=== PATIENT | female | born 1960 | race Caucasian/White ===

== ENCOUNTER → 2016-06-01 | Outpatient (CLI) | payer BC ==
[~2016-06-01] MED LIST: ASPIRIN 32325 MG/TAB PO; ATIVAN 1MG T1 MG/TAB PO; CARDIZEM CD 24240 MG PO; CARDIZEM CD360 MG PO; CATAPRES 0.1MG0.1 MG PO; CEPHALEXIN500 M1 PO; CITALOPRAM HYDR20 MG PO; CYMBALTA 60MG60 MG PO; DULCOLAX STOOL100 MG PO; INDERAL 10MG10 MG PO; INDERAL LA120 MG PO; INDERAL80 MG PO; LEXAPRO 10MG10 MG PO; LEXAPRO 5MG5 MG; MINIPRESS 1M1 MG/CAP PO; MYSOLINE 5050 MG/TAB PO; NATURE'S BLEND100 M2 PO; NICODERM C14 MG/PATC TD; NICODERM C21 MG/PATC TD; NICODERM C7 MG/PATCH TD; NORVASC; NORVASC 5MG5 MG/TAB PO; PREMARIN 0.60.625 M1 PO; PRILOSEC 20MG20 MG PO; PRILOTC PO; REMERON 15M15 MG/TA1 PO; SEROQUEL; SEROQUEL 2525 MG/TAB PO; SEROQUEL50 MG PO; SYNTHROID 0.10.15 MG PO; SYNTHROID0.137 MG PO; TAMBOCOR 1100 MG/TAB PO; THERAGRAN TAB1 UDTAB PO; ULTRAM 50MG TAB50 MG PO; VALIUM 5MG T5 MG/TAB PO; WELLBUTRIN SR100 M1 PO; WELLBUTRIN XL300 M1 PO; XARELTO20 MG PO; ZINC SO4 PO; ZOFRAN 4MG T4 MG/TAB PO
== END ==
LOC: BHSO 10:59
DX: F10.20 Alcohol dependence, uncomplicated (principal)

== ENCOUNTER → 2016-10-03 | Outpatient (CLI) | payer BC | LOC: BHSO 09:04 | DX: F43.10 Post-traumatic stress disorder, unspecified (principal) ==

== ENCOUNTER → 2016-11-26 | Outpatient (CLI) | payer BC | LOC: BHSO 10:59 | DX: F43.10 Post-traumatic stress disorder, unspecified (principal) ==

== ENCOUNTER 2017-01-15 14:05 | Emergency (ER) | payer BC ==
[~2017-01-15] VITALS: Ht 172.7 cm; Wt 95.5 kg
[~2017-01-15 14:05] MED LIST changes: -CARDIZEM CD360 MG PO; -MINIPRESS 1M1 MG/CAP PO; -TAMBOCOR 1100 MG/TAB PO; -XARELTO20 MG PO
[2017-01-15 14:08] VITALS: TEMP 98.2
[2017-01-15] MEDS ORDERED: XARELTO20 MG PO (15:14)
[2017-01-15] MEDS ORDERED: CARDIZEM CD360 MG PO (15:14)
[2017-01-15] MEDS ORDERED: TAMBOCOR 1100 MG/TAB PO (15:16)
[2017-01-15] MEDS ORDERED: MINIPRESS 1M1 MG/CAP PO (15:16)
[2017-01-15 15:23] LABS: BASO # 0.1 (0.0-0.2); BASO % 0.7 % (0.0-2.0); EOS # 0.4 (0.0-0.7); EOS % 3.3 % (0-4.0); GRAN # 6.4 (1.4-6.5); GRAN % 59.7 % (42.2-75.2); HEMOGLOBIN 13.9 g/dl (12.5-16.0); LYMPH # 2.9 (1.2-3.4); LYMPH % 27.2 % (20.0-51.0); MEAN CELL VOLUME 91 fl (80.0-100.0); MEAN CORPUSCULAR HEMOGLOBIN 29 pg (27.0-31.0); MEAN CORPUSCULAR HGB CONC 32 g/dl (33.0-37.0); MEAN PLATELET VOLUME 9.6 fl (7.4-10.4); MONO # 0.9 (0.1-0.6); MONO % 8.4 % (1.7-9.3); PLATELET COUNT 282 K/mm3 (130-400); RED BLOOD COUNT 4.75 M/mm3 (4.10-5.30); REDCELL DISTRIBUTION WIDTH-CV 13.3 % (11.5-14.5); WHITE BLOOD COUNT 10.8 K/mm3 (4.8-10.8)
[2017-01-15 15:33] LABS: ADJUSTED CALCIUM 9.3 mg/dL (8.4-10.2); ALBUMIN 4.1 gm/dL (3.5-5.0); BILIRUBIN,TOTAL 0.5 mg/dL (0.0-1.0); CALCIUM 9.4 mg/dL (8.4-10.2); CREATININE, serum 0.81 mg/dL (0.52-1.25); POTASSIUM 4.3 mmol/L (3.4-5.0); TOTAL PROTEIN 7.5 gm/dL (6.4-8.2)
[2017-01-15 16:20] VITALS: BP 129/77; PULSE 62
== END 2017-01-15 16:21 | disposition home or self-care (01) ==
LOC: COL.ER 14:05
PROVIDERS: Family Medicine
DX: J45.901 Unspecified asthma with (acute) exacerbation (principal); G40.909 Epilepsy, unspecified, not intractable, without status epilepticus; F17.210 Nicotine dependence, cigarettes, uncomplicated; Z89.9 Acquired absence of limb, unspecified
CPT/HCPCS: J7512

== ENCOUNTER → 2017-01-15 | Outpatient (CLI) | payer BC | LOC: COL.PUL 13:00 | DX: R06.02 Shortness of breath (principal); F17.200 Nicotine dependence, unspecified, uncomplicated ==

== ENCOUNTER → 2017-01-21 | Outpatient (CLI) | payer BC ==
[~2017-01-21] MED LIST changes: +CARDIZEM CD360 MG PO; +MINIPRESS 1M1 MG/CAP PO; +TAMBOCOR 1100 MG/TAB PO; +XARELTO20 MG PO
== END ==
LOC: COL.RAD 13:00
DX: R91.8 Other nonspecific abnormal finding of lung field (principal)
CPT/HCPCS: Q9967

== ENCOUNTER → 2017-03-08 | Outpatient (CLI) | payer BC | LOC: BHSO 10:12 | DX: F43.10 Post-traumatic stress disorder, unspecified (principal) ==

== ENCOUNTER → 2017-04-08 | Outpatient (CLI) | payer BC | LOC: BHSO 11:20 | DX: F43.10 Post-traumatic stress disorder, unspecified (principal) ==

== ENCOUNTER 2017-04-11 14:45 | Outpatient (RCR) | payer BC | END 2017-06-09 | LOC: MKS.ESL.PT | DX: R53.1 Weakness (principal); R26.89 Other abnormalities of gait and mobility ==

== ENCOUNTER → 2017-04-17 | Outpatient (CLI) | payer BC | LOC: BHSO 11:02 | DX: F33.1 Major depressive disorder, recurrent, moderate (principal) ==

== ENCOUNTER → 2017-04-22 | Outpatient (CLI) | payer BC | LOC: BHSO 16:00 | DX: F33.1 Major depressive disorder, recurrent, moderate (principal) ==

== ENCOUNTER → 2017-05-02 | Outpatient (CLI) | payer BC | LOC: BHSO 10:02 | DX: F33.1 Major depressive disorder, recurrent, moderate (principal) ==

== ENCOUNTER → 2017-05-22 | Outpatient (CLI) | payer BC | LOC: BHSO 14:00 | DX: F33.1 Major depressive disorder, recurrent, moderate (principal) ==

== ENCOUNTER → 2017-06-03 | Outpatient (CLI) | payer BC | LOC: BHSO 13:22 | DX: F43.10 Post-traumatic stress disorder, unspecified (principal) | CPT/HCPCS: G0463 ==

== ENCOUNTER → 2017-06-05 | Outpatient (CLI) | payer BC | LOC: BHSO 14:04 | DX: F33.1 Major depressive disorder, recurrent, moderate (principal) ==

== ENCOUNTER → 2017-06-20 | Outpatient (CLI) | payer BC | LOC: BHSO 11:08 | DX: F33.1 Major depressive disorder, recurrent, moderate (principal) ==

== ENCOUNTER → 2017-09-02 | Outpatient (CLI) | payer BC | LOC: BHSO 14:05 | DX: F43.10 Post-traumatic stress disorder, unspecified (principal) | CPT/HCPCS: G0463 ==

== ENCOUNTER 2017-09-28 20:18 | Emergency (ER) | payer BC ==
[~2017-09-28] VITALS: Ht 170.2 cm; Wt 96.4 kg
[~2017-09-28 20:18] MED LIST changes: +WELLBUTRIN XL150 MG PO; -WELLBUTRIN XL300 M1 PO
[2017-09-28 20:26] VITALS: TEMP 97.9
[2017-09-28 21:02] LABS: HEMATOCRIT 44.1 % (37.0-47.0); HEMOGLOBIN 14.8 g/dl (12.5-16.0); MEAN CELL VOLUME 85 fl (80.0-100.0); MEAN CORPUSCULAR HEMOGLOBIN 28 pg (27.0-31.0); MEAN CORPUSCULAR HGB CONC 34 g/dl (33.0-37.0); MEAN PLATELET VOLUME 9.2 fl (7.4-10.4); PLATELET COUNT 359 K/mm3 (130-400); RED BLOOD COUNT 5.22 M/mm3 (4.10-5.30); REDCELL DISTRIBUTION WIDTH-CV 14.4 % (11.5-14.5)
[2017-09-28 21:14] LABS: ALANINE AMINOTRANSFERASE 33 U/L (9-52); ALBUMIN 4.1 gm/dL (3.5-5.0); ALCOHOL(ethanol),MEDICAL 250 mg/dL; ALKALINE PHOSPHATASE 163 U/L (50-136); ANION GAP 16 mmol/L (7-16); AST,SGOT 23 U/L (15-37); BILIRUBIN,TOTAL 0.5 mg/dL (0.0-1.0); BLOOD UREA NITROGEN 15 mg/dL (7-17); CALCIUM 9.1 mg/dL (8.4-10.2); CARBON DIOXIDE 21 mmol/L (22-30); CHLORIDE 104 mmol/L (98-107); CREATININE, serum 0.83 mg/dL (0.52-1.25); GLUCOSE 119 mg/dL (74-106); LIPASE 29 U/L (23-300); SODIUM 141 mmol/L (137-145)
[2017-09-28 21:15] LABS: ACETAMINOPHEN < 10 ug/mL (10-30); SALICYLATE < 1.0 mg/dL
[2017-09-28 21:19] LABS: BAND 4 % (0-10); EOSINOPHIL 1 % (0-4); LYMPHOCYTE 56 % (20.0-51.0); NEUTROPHILS 36 % (42.0-75.2); PLATELET ESTIMATE NORMAL (NORMAL)
[2017-09-28] MEDS ORDERED: ESTRACE 1MG1 MG/TAB PO (22:04)
[2017-09-28] MEDS ORDERED: ULTRAM 50MG TAB50 MG PO (22:21)
[2017-09-28] MEDS ORDERED: ATARAX 25MG25 MG/TAB PO (22:21)
[2017-09-28] MEDS ORDERED: NEURONTIN300 MG/CAP PO (22:21)
[2017-09-28] MEDS ORDERED: ASPIRIN E.C. 8181 MG PO (22:21)
[2017-09-28] MEDS ORDERED: KLONOPIN 1MG1 MG PO (22:21)
[2017-09-28 23:31] LABS: COLLECTION METHOD CLEAN CATCH
[2017-09-28 23:38] LABS: PH 5 (5-8); SQUAMOUS EPITHELIAL 0-2 /hpf; URINE APPEARANCE Clear; URINE BACTERIA None Seen /hpf; URINE BILIRUBIN Negative (NEGATIVE); URINE BLOOD 1+ (NEGATIVE); URINE COLOR Yellow; URINE GLUCOSE Negative (NEGATIVE); URINE KETONE Negative (NEGATIVE); URINE LEUKOCYTE ESTERASE Negative (NEGATIVE); URINE NITRATE Negative (NEGATIVE); URINE PROTEIN(semi-quant) Negative (NEGATIVE); URINE RBC 0-2 /hpf; URINE UROBILINOGEN Negative (NEGATIVE)
[2017-09-28 23:45] LABS: TRICYCLIC ANTIDEPRESS URINE NEGATIVE
[2017-09-29 09:12] VITALS: BP 168/96; PULSE 73
== END 2017-09-29 14:30 ==
LOC: COL.ER 20:18
PROVIDERS: Emergency Medicine
DX: F10.129 Alcohol abuse with intoxication, unspecified (principal); R45.851 Suicidal ideations; I10 Essential (primary) hypertension; I48.91 Unspecified atrial fibrillation; F32.9 Major depressive disorder, single episode, unspecified; E03.9 Hypothyroidism, unspecified; Z90.710 Acquired absence of both cervix and uterus; Z79.01 Long term (current) use of anticoagulants; Z79.82 Long term (current) use of aspirin; Y90.8 Blood alcohol level of 240 mg/100 ml or more

== ENCOUNTER → 2017-10-15 | Outpatient (CLI) | payer BC ==
[~2017-10-15] MED LIST changes: +ASPIRIN E.C. 8181 MG PO; +ATARAX 25MG25 MG/TAB PO; +ESTRACE 1MG1 MG/TAB PO; +KLONOPIN 1MG1 MG PO; +NEURONTIN300 MG/CAP PO
== END ==
LOC: BHSO 14:42
DX: F10.20 Alcohol dependence, uncomplicated (principal)
CPT/HCPCS: G0463

== ENCOUNTER → 2017-10-16 | Outpatient (CLI) | payer BC | LOC: BHSO 10:54 | DX: F33.1 Major depressive disorder, recurrent, moderate (principal) ==

== ENCOUNTER → 2017-10-30 | Outpatient (CLI) | payer BC | LOC: BHSO 16:06 | DX: F33.1 Major depressive disorder, recurrent, moderate (principal) ==

== ENCOUNTER → 2017-11-08 | Outpatient (CLI) | payer BC | LOC: BHSO 15:58 | DX: F33.1 Major depressive disorder, recurrent, moderate (principal) ==

== ENCOUNTER → 2017-11-11 | Outpatient (CLI) | payer BC | LOC: BHSO 09:14 | DX: F33.1 Major depressive disorder, recurrent, moderate (principal) ==

== ENCOUNTER → 2017-11-25 | Outpatient (CLI) | payer BC | LOC: BHSO 09:05 | DX: F31.11 Bipolar disorder, current episode manic without psychotic features, mild (principal) ==

== ENCOUNTER → 2017-12-04 | Outpatient (CLI) | payer BC | LOC: BHSO 09:05 | DX: F31.11 Bipolar disorder, current episode manic without psychotic features, mild (principal) ==

== ENCOUNTER → 2017-12-10 | Outpatient (CLI) | payer BC | LOC: BHSO 09:08 | DX: F31.11 Bipolar disorder, current episode manic without psychotic features, mild (principal) ==

== ENCOUNTER → 2017-12-16 | Outpatient (CLI) | payer BC | LOC: BHSO 10:01 | DX: F31.11 Bipolar disorder, current episode manic without psychotic features, mild (principal) ==

== ENCOUNTER → 2017-12-18 | Outpatient (CLI) | payer BC | LOC: BHSO 10:22 | DX: F43.10 Post-traumatic stress disorder, unspecified (principal) | CPT/HCPCS: G0463 ==

== ENCOUNTER → 2017-12-31 | Outpatient (CLI) | payer BC | LOC: BHSO 08:59 | DX: F31.81 Bipolar II disorder (principal) ==

== ENCOUNTER → 2018-01-09 | Outpatient (CLI) | payer BC | LOC: BHSO 14:00 | DX: F31.81 Bipolar II disorder (principal) ==

== ENCOUNTER → 2018-01-23 | Outpatient (CLI) | payer BC | LOC: BHSO 14:01 | DX: F31.11 Bipolar disorder, current episode manic without psychotic features, mild (principal) ==

== ENCOUNTER → 2018-02-04 | Outpatient (CLI) | payer BC | LOC: BHSO 13:03 | DX: F31.11 Bipolar disorder, current episode manic without psychotic features, mild (principal) ==

== ENCOUNTER → 2018-02-13 | Outpatient (CLI) | payer BC | LOC: BHSO 15:26 | DX: F43.10 Post-traumatic stress disorder, unspecified (principal) | CPT/HCPCS: G0463 ==

== ENCOUNTER → 2018-02-14 | Outpatient (CLI) | payer BC | LOC: BHSO 13:12 | DX: F31.11 Bipolar disorder, current episode manic without psychotic features, mild (principal) ==

== ENCOUNTER → 2018-02-20 | Outpatient (CLI) | payer BC | LOC: BHSO 14:04 | DX: F31.81 Bipolar II disorder (principal) ==

== ENCOUNTER → 2018-03-06 | Outpatient (CLI) | payer BC | LOC: BHSO 11:00 | DX: F31.11 Bipolar disorder, current episode manic without psychotic features, mild (principal) ==

== ENCOUNTER → 2018-03-19 | Outpatient (CLI) | payer BC | LOC: BHSO 13:23 | DX: F41.1 Generalized anxiety disorder (principal) | CPT/HCPCS: G0463 ==

== ENCOUNTER → 2018-05-15 | Outpatient (CLI) | payer BC | LOC: BHSO 15:22 | DX: F43.10 Post-traumatic stress disorder, unspecified (principal) | CPT/HCPCS: G0463 ==

== ENCOUNTER → 2018-05-19 | Outpatient (CLI) | payer BC | LOC: BHSO 15:05 | DX: F31.81 Bipolar II disorder (principal) ==

== ENCOUNTER → 2018-06-10 | Outpatient (CLI) | payer BC | LOC: BHSO 13:04 | DX: F31.81 Bipolar II disorder (principal) ==

== ENCOUNTER → 2018-06-18 | Outpatient (CLI) | payer BC | LOC: BHSO 14:03 | DX: F31.81 Bipolar II disorder (principal) ==

== ENCOUNTER → 2018-08-12 | Outpatient (CLI) | payer BC | LOC: BHSO 10:46 | DX: F43.10 Post-traumatic stress disorder, unspecified (principal) | CPT/HCPCS: G0463 ==

== ENCOUNTER → 2018-08-18 | Outpatient (CLI) | payer BC | LOC: BHSO 10:02 | DX: F31.81 Bipolar II disorder (principal) ==

== ENCOUNTER → 2018-08-25 | Outpatient (CLI) | payer BC | LOC: BHSO 11:02 | DX: F31.11 Bipolar disorder, current episode manic without psychotic features, mild (principal) ==

== ENCOUNTER 2018-09-02 07:51 | Day surgery (SDC) | payer BC ==
[2018-09-02] VITALS (7 sets, daily range): BP systolic 110–156; BP diastolic 60–91; PULSE 69–96; TEMP 97.7
[~2018-09-02] VITALS: Ht 170.2 cm; Wt 93.2 kg
[2018-09-02] MEDS ORDERED: ANORO IH (08:35)
[2018-09-02] MEDS ORDERED: ABILIFY 10MG TA10 MG PO (08:36)
[2018-09-02] MEDS ORDERED: DALIRESP500 MCG PO (08:38)
[2018-09-02] MEDS ORDERED: DESYREL 50MG50 MG PO (08:45)
[2018-09-02] MEDS ORDERED: NATURE'S BLEND100 M2 PO (08:46)
[2018-09-02] MEDS ORDERED: MULTI-VITAMIN W1 TA1 PO (08:46)
[2018-09-02] MEDS ORDERED: ATIVAN 0.50.5 MG/TAB PO (08:47)
--- NOTE | 2018-09-02 10:32 | NUR ---
ALL MEDICATIONS GIVEN VORB WITH MD. SEE MERGE FOR ALL MEDICATION ADMIN TIMES. SEE MERGE FOR ALL RASS ASSESSMENTS DURING AND POST PROCEDURE.
[2018-09-02] MEDS ORDERED: CEPHALEXIN500 M1 PO (10:53)
--- NOTE | 2018-09-02 11:00 | NUR ---
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 Drowsy but oriented. Denies pain and needs at this time. Dressing to mid chest CD&I. VSS
--- NOTE | 2018-09-02 11:40 | NUR ---
INT discontinued intact. Discharge instructions given. Transferred to private car by geno
--- NOTE | 2018-09-03 12:56 | NUR ---
Ranim to discharged note: Joseph Dickerson RN, pt discharged at 1240 on 09/02/18.
== END 2018-09-02 11:40 | disposition home or self-care (01) ==
LOC: COL.CAR 07:51
DX: I48.0 Paroxysmal atrial fibrillation (principal); I10 Essential (primary) hypertension; E11.9 Type 2 diabetes mellitus without complications; K21.9 Gastro-esophageal reflux disease without esophagitis; F17.210 Nicotine dependence, cigarettes, uncomplicated; J44.9 Chronic obstructive pulmonary disease, unspecified; G47.30 Sleep apnea, unspecified; Q20.8 Other congenital malformations of cardiac chambers and connections; Z98.890 Other specified postprocedural states; Z79.899 Other long term (current) drug therapy; Z79.82 Long term (current) use of aspirin; Z90.710 Acquired absence of both cervix and uterus; F41.9 Anxiety disorder, unspecified; F32.9 Major depressive disorder, single episode, unspecified; F10.11 Alcohol abuse, in remission; E03.9 Hypothyroidism, unspecified; K58.9 Irritable bowel syndrome, unspecified
CPT/HCPCS: J0690; J2250; J3010; J7040

== ENCOUNTER → 2018-09-08 | Outpatient (CLI) | payer BC ==
[~2018-09-08] MED LIST changes: +ABILIFY 10MG TA10 MG PO; +ANORO IH; +ATIVAN 0.50.5 MG/TAB PO; +DALIRESP500 MCG PO; +DESYREL 50MG50 MG PO; +MULTI-VITAMIN W1 TA1 PO
== END ==
LOC: BHSO 11:06
DX: F31.81 Bipolar II disorder (principal)

== ENCOUNTER → 2018-09-17 | Outpatient (CLI) | payer BC | LOC: BHSO 11:03 | DX: F31.11 Bipolar disorder, current episode manic without psychotic features, mild (principal) ==

== ENCOUNTER → 2018-09-25 | Outpatient (CLI) | payer BC | LOC: BHSO 09:04 | DX: F31.81 Bipolar II disorder (principal) ==

== ENCOUNTER → 2018-10-07 | Outpatient (CLI) | payer BC | LOC: BHSO 10:02 | DX: F31.81 Bipolar II disorder (principal) ==

== ENCOUNTER → 2018-10-23 | Outpatient (CLI) | payer BC | LOC: BHSO 15:39 | DX: F43.10 Post-traumatic stress disorder, unspecified (principal) | CPT/HCPCS: G0463 ==

== ENCOUNTER → 2018-10-28 | Outpatient (CLI) | payer BC | LOC: BHSO 13:00 | DX: F31.81 Bipolar II disorder (principal) ==

== ENCOUNTER → 2018-11-04 | Outpatient (CLI) | payer BC | LOC: BHSO 13:00 | DX: F31.81 Bipolar II disorder (principal) ==

== ENCOUNTER → 2018-11-25 | Outpatient (CLI) | payer BC | LOC: BHSO 13:01 | DX: F31.81 Bipolar II disorder (principal) ==

== ENCOUNTER → 2019-01-16 | Outpatient (CLI) | payer BC | LOC: BHSO 10:20 | DX: F43.10 Post-traumatic stress disorder, unspecified (principal) | CPT/HCPCS: G0463 ==

== ENCOUNTER → 2019-07-14 | Outpatient (CLI) | payer MEDICARE, OTHER | LOC: BHSO 14:01 | DX: F43.10 Post-traumatic stress disorder, unspecified (principal) | CPT/HCPCS: G0463 ==

== ENCOUNTER 2019-12-04 08:30 | Outpatient (RCR) | payer MEDICARE, OTHER | END 2019-12-24 | disposition home or self-care (01) | LOC: MKS.ESL.PT | DX: M54.5 Low back pain (principal); G89.29 Other chronic pain ==

== ENCOUNTER → 2020-01-14 | Outpatient (CLI) | payer MEDICARE, OTHER | LOC: BHSO 14:01 | DX: F43.10 Post-traumatic stress disorder, unspecified (principal) | CPT/HCPCS: G0463 ==

== ENCOUNTER 2020-06-17 08:46 | Inpatient (IN) | payer MEDICARE ==
[~2020-06-17] VITALS: Ht 170.2 cm; Wt 100.9 kg
[2020-06-17] VITALS (9 sets, daily range): BP systolic 114–167; BP diastolic 60–94; PULSE 61–72; TEMP 97.4–97.9
[2020-06-17 09:25] LABS: BASO # 0.1 (0.0-0.2); BASO % 0.7 % (0.0-2.0); EOS # 0.1 (0.0-0.7); EOS % 0.8 % (0-4.0); GRAN # 10.1 (1.4-6.5); GRAN % 77.4 % (42.2-75.2); HEMATOCRIT 42.4 % (37.0-47.0); HEMOGLOBIN 13.9 g/dl (12.5-16.0); LYMPH # 2.1 (1.2-3.4); LYMPH % 15.8 % (20.0-51.0); MEAN CELL VOLUME 91 fl (80.0-100.0); MEAN CORPUSCULAR HEMOGLOBIN 30 pg (27.0-31.0); MEAN CORPUSCULAR HGB CONC 33 g/dl (33.0-37.0); MEAN PLATELET VOLUME 9.8 fl (7.4-10.4); MONO # 0.6 (0.1-0.6); MONO % 4.8 % (1.7-9.3); PLATELET COUNT 278 K/mm3 (130-400); RED BLOOD COUNT 4.66 M/mm3 (4.10-5.30); REDCELL DISTRIBUTION WIDTH-CV 13.4 % (11.5-14.5)
[2020-06-17 09:32] LABS: PROTHROMBIN TIME 10.6 SECONDS (9.7-12.8)
[2020-06-17 09:35] LABS: PARTIAL THROMBOPLASTIN TIME 32.7 SECONDS (26.0-37.0)
[2020-06-17 09:40] LABS: ALBUMIN 4.4 gm/dL (3.5-5.0); BILIRUBIN,TOTAL 0.4 mg/dL (0.0-1.0); CALCIUM 9.2 mg/dL (8.4-10.2); CREATININE, serum 0.74 (0.52-1.25); POTASSIUM 4.4 mmol/L (3.4-5.0); TOTAL PROTEIN 7.7 gm/dL (6.4-8.2)
[2020-06-17 09:52] LABS: TROPONIN-I 0.11 ng/mL (0.000-0.035)
[2020-06-17] MEDS ORDERED: NEURONTIN300 MG/CAP (10:39)
[2020-06-17] MEDS ORDERED: MYSOLINE 5050 MG/TAB PO (10:42)
[2020-06-17] MEDS ORDERED: WELLBUTRIN XL300 M1 PO (10:42)
[2020-06-17] MEDS ORDERED: DALIRESP500 MCG PO (10:43)
[2020-06-17] MEDS ORDERED: FOLIC ACID 11 MG/TA1 PO (10:44)
[2020-06-17] MEDS ORDERED: TAZTIA180 (10:46)
--- NOTE | 2020-06-17 12:22 | NUR ---
PATIENT ADMITED INTO ROOM 353 FROM ER WITH NSTEMI. PATIENT CURRENTLY DENIES CHEST PAIN OR SOA. NOTED TROPONIN OF 0.110. HEPARIN GTT INFUSING VIA PUMP. PATIENT HAS RIGHT FORARM AND LEFT AC IV'S. NPO FOR HEART CATH LATER TODAY. VSS WITH TELE INPLACE. HEAD TO TOE ASSESSMENT COMPLETE. ORIENTED TO ROOM. CALL LIGHT IN REACH.
--- NOTE | 2020-06-17 14:30 | NUR ---
PATIENT OFF FLOOR TO PUBLIC RELATIONS COORDINATOR
--- NOTE | 2020-06-17 16:25 | NUR ---
PATIENT BACK IN HER ROOM POST HEART CATH. RIGHT RADIAL CUFF INPLACE WITH 16CC OF AIR. PATIENT IS A&O. VSS. NO C/O PAIN. PATIENT CALLING FAMILY AND THEN WANTS TO SLEEP.
--- NOTE | 2020-06-17 17:33 | NUR ---
NURSING CALLED TELE ABOUT ANOTHER PATIENT WHEN TECHNICAL STAFF ENGINEER REPORTED THE PATIENT IN 353 SUDDENLY HAD AN IRREGULAR RHYTHEM. CHARGE NURSE, THO, AND HOUSE AT BEDSIDE. PATIENT REPORTS SHE WAS SLEEPING AND SUDDENTLY REALIZED SHE WAS SUPPOSED TO GIVE A SPEACH TOMORROW AT 8AM AND SAT UP QUICKLY TO CALL SOMEONE. PATIENT STATES SHE FEELS FINE. VSS. RT CALLED FOR STAT EKG.
--- NOTE | 2020-06-17 20:20 | NUR ---
Resting in bed. Assessment complete. Lungs clear. Heart sounds normal. Bowels active x4. Pulses present throughout. No edema noted. INT left AC without complications. Reports headache. Otained order for tylenol. Right radial site oozing with initial release of air. Will closely monitor and follow orders for release of air. Denies other needs at this time. Call light in reach.
--- NOTE | 2020-06-17 21:56 | NUR ---
Pt has order for CPAP Upon visiting with the patient she states she does wear CPAP at home but is unsure of settings. Discussed putting patient on one of our hospital devices with a mask. The patient refuses as this time being that she is unsure of settings and is particular about her mask. She states she believes she is only here overnight. The patient is currently on 2lpm nc and sats ar in the upper 90%s.
--- NOTE | 2020-06-17 22:00 | NUR ---
Remaining air removed from radial arm band. No further oozing at this time.
--- NOTE | 2020-06-18 01:05 | NUR ---
Radial site CDI. Band removed. Bandaide applied. Will continue monitor.
[2020-06-18 01:30] VITALS: BP 139/68; PULSE 62; TEMP 97.4
--- NOTE | 2020-06-18 04:59 | NUR ---
Pt requested something for pain. Pt was given 2 Tylenol at this time. Pt has her call light within reach.
--- NOTE | 2020-06-18 06:08 | NUR ---
Patient right radial site CDI. Uneventful night. Resting in bed this AM. Call light in reach.
[2020-06-18 06:20] VITALS: BP 143/79; PULSE 76; TEMP 98.2
--- NOTE | 2020-06-18 07:11 | NUR ---
Report given to MARY Nelson
[2020-06-18 08:09] VITALS: BP 153/67; PULSE 73; TEMP 97.3
[2020-06-18 09:01] LABS: BASO # 0.1 (0.0-0.2); BASO % 0.6 % (0.0-2.0); EOS # 0.3 (0.0-0.7); EOS % 2.3 % (0-4.0); GRAN # 8.5 (1.4-6.5); GRAN % 68.7 % (42.2-75.2); HEMATOCRIT 42.9 % (37.0-47.0); HEMOGLOBIN 14.1 g/dl (12.5-16.0); LYMPH # 2.8 (1.2-3.4); LYMPH % 22.3 % (20.0-51.0); MEAN CELL VOLUME 92 fl (80.0-100.0); MEAN CORPUSCULAR HEMOGLOBIN 30 pg (27.0-31.0); MEAN CORPUSCULAR HGB CONC 33 g/dl (33.0-37.0); MEAN PLATELET VOLUME 9.9 fl (7.4-10.4); MONO # 0.7 (0.1-0.6); MONO % 5.6 % (1.7-9.3); PLATELET COUNT 287 K/mm3 (130-400); RED BLOOD COUNT 4.67 M/mm3 (4.10-5.30); REDCELL DISTRIBUTION WIDTH-CV 13.5 % (11.5-14.5)
[2020-06-18 09:12] LABS: CALCIUM 9.6 mg/dL (8.4-10.2); CREATININE, serum 0.74 (0.52-1.25)
--- NOTE | 2020-06-18 10:01 | NUR ---
Pt assessment completed and charted, medications administered per jul. Pt A&O, independent in room w/ cane. Currently on2L NC, per pt, she wears O2 at night, removed at this time. Pt denies any SOB, LS cta, HRRR.Rt radial site from heart cath on 06/17, covered w/ bandaid, CDI, soft to touch, no hematoma, pulses strong bilaterally. Pt denies any pain, N/V. Had some diarrhea this morning, states there was no blood that she noticed. LAC INT IV flushes w/o issue. No edema present. Pt meds were not continued from 06/17, discussed w/ hospitalist, will continue meds. Awaiting cards to round, pt to discharge today possibly.
[2020-06-18] MEDS ORDERED: BRILINTA90 MG PO (10:02)
[2020-06-18] MEDS ORDERED: LIPITOR 80MG80 MG PO (10:02)
[2020-06-18 11:43] VITALS: BP 146/78; PULSE 73; TEMP 98.4
--- NOTE | 2020-06-18 12:18 | NUR ---
Plans to return home with [facility]. SW met with patient about her care plan. Patient reports that she uses Cpap and 2liters of O2 at home, serviced through [employer]. Patient reports that she has a walker and a can for mobility. Patient shares that she has had home health in the past and is okay with restarting the services to help her. Patient shares that her PCP is Dr. Stringer and use [facility] for medications. EMR contacts are Lily Martin -Mother and Steven Rosario Son . Patient denies having a DPOA. SW faxed JADE to [facility] for services. Will continue to follow for care.
--- NOTE | 2020-06-18 12:27 | NUR ---
Pt discharge instructions discussed and reviewed w/ pt who verbalized understanding, all questions answered. LAC INT IV dc'd w/ cath tip intact, no issues. Pt escorted out via MARIAN w/ ELBA Hernandez to ER entrance and private car for transportation.
== END 2020-06-18 12:29 | disposition home or self-care (01) | DRG 247 ==
LOC: COL.ER 08:46 → MEDICAL 11:19
PROVIDERS: Family Medicine; ADMIT Student in an Organized Health Care Education/Training Program
PROC: 027034Z Dilation of Coronary Artery, One Artery with Drug-eluting Intraluminal Device, Percutaneous Approach (ICD-10-PCS; principal; 2020-06-17)
PROC: 4A023N7 Measurement of Cardiac Sampling and Pressure, Left Heart, Percutaneous Approach (ICD-10-PCS; 2020-06-17)
PROC: B2111ZZ Fluoroscopy of Multiple Coronary Arteries using Low Osmolar Contrast (ICD-10-PCS; 2020-06-17)
DX: I21.4 Non-ST elevation (NSTEMI) myocardial infarction (principal); J96.11 Chronic respiratory failure with hypoxia; D72.829 Elevated white blood cell count, unspecified; J44.9 Chronic obstructive pulmonary disease, unspecified; I11.0 Hypertensive heart disease with heart failure; I48.91 Unspecified atrial fibrillation; E03.9 Hypothyroidism, unspecified; R25.1 Tremor, unspecified; E11.42 Type 2 diabetes mellitus with diabetic polyneuropathy; K21.9 Gastro-esophageal reflux disease without esophagitis; I25.110 Atherosclerotic heart disease of native coronary artery with unstable angina pectoris; F32.9 Major depressive disorder, single episode, unspecified; F17.210 Nicotine dependence, cigarettes, uncomplicated; G47.00 Insomnia, unspecified; Z99.81 Dependence on supplemental oxygen
CPT/HCPCS: 99222-AI; C9600; J1644; J2250; J3010

== ENCOUNTER 2020-09-28 16:00 | Outpatient (RCR) | payer MEDICARE ==
[~2020-09-28 16:00] MED LIST changes: +BRILINTA90 MG PO; +FOLIC ACID 11 MG/TA1 PO; +LIPITOR 80MG80 MG PO; +NEURONTIN300 MG/CAP; +TAZTIA180; +WELLBUTRIN XL300 M1 PO
== END 2020-10-09 | disposition home or self-care (01) ==
LOC: COL.CR
DX: Z48.812 Encounter for surgical aftercare following surgery on the circulatory system (principal); Z95.5 Presence of coronary angioplasty implant and graft; I25.10 Atherosclerotic heart disease of native coronary artery without angina pectoris

== ENCOUNTER 2020-10-26 15:03 | Outpatient (RCR) | payer MEDICARE | END 2020-10-31 15:48 | disposition home or self-care (01) | LOC: COL.CR 15:03 | DX: Z48.812 Encounter for surgical aftercare following surgery on the circulatory system (principal); Z95.5 Presence of coronary angioplasty implant and graft; I25.10 Atherosclerotic heart disease of native coronary artery without angina pectoris ==

== ENCOUNTER → 2021-03-30 | Outpatient (CLI) | payer MEDICARE | LOC: COL.RAD 13:10 | DX: Z12.2 Encounter for screening for malignant neoplasm of respiratory organs (principal); F17.210 Nicotine dependence, cigarettes, uncomplicated ==

== ENCOUNTER 2021-06-23 08:56 | Emergency (ER) | payer MEDICARE ==
[~2021-06-23] VITALS: Ht 170.2 cm; Wt 93.2 kg
[2021-06-23 09:09] VITALS: TEMP 97.1
[2021-06-23 09:44] LABS: BASO # 0.1 K/mm3 (0.0-0.2); BASO % 0.7 % (0.0-2.0); EOS # 0.3 K/mm3 (0.0-0.7); EOS % 2.9 % (0.0-4.0); GRAN # 5.2 K/mm3 (1.4-6.5); GRAN % 59.9 % (42.2-75.2); HEMATOCRIT 43.4 % (37.0-47.0); HEMOGLOBIN 14.3 g/dl (12.5-16.0); LYMPH # 2.6 K/mm3 (1.2-3.4); LYMPH % 30.2 % (20.0-51.0); MEAN CELL VOLUME 90 fl (80.0-100.0); MEAN CORPUSCULAR HEMOGLOBIN 30 pg (27-31); MEAN CORPUSCULAR HGB CONC 33 g/dl (33.0-37.0); MONO # 0.5 K/mm3 (0.1-0.6); MONO % 6.1 % (1.7-9.3); PLATELET COUNT 283 K/mm3 (130-400); RED BLOOD COUNT 4.82 M/mm3 (4.10-5.30); REDCELL DISTRIBUTION WIDTH-CV 13.4 % (11.5-14.5)
[2021-06-23 10:02] LABS: ALBUMIN 3.7 gm/dL (3.4-4.8); BILIRUBIN,TOTAL 0.3 mg/dL (0.2-1.2); CALCIUM 9.5 mg/dL (8.4-10.2); CREATININE, serum 0.84 mg/dL (0.57-1.11); POTASSIUM 3.8 mmol/L (3.5-4.5); TOTAL PROTEIN 7.3 gm/dL (6.2-8.1)
[2021-06-23 10:08] LABS: TROPONIN-I 0.01 ng/mL (0.00-0.033)
[2021-06-23] MEDS ORDERED: PREDNISONE20 MG PO (10:30)
[2021-06-23] MEDS ORDERED: ZITHROMAX Z PA250 MG PO (10:30)
[2021-06-23] MEDS ORDERED: OMNICEF 300MG300 MG PO (10:30)
[2021-06-23 10:47] VITALS: BP 122/63; PULSE 61
== END 2021-06-23 10:54 | disposition home or self-care (01) ==
LOC: COL.ER 08:56
PROVIDERS: Emergency Medicine
DX: J44.1 Chronic obstructive pulmonary disease with (acute) exacerbation (principal); J18.9 Pneumonia, unspecified organism; I10 Essential (primary) hypertension; E03.9 Hypothyroidism, unspecified; I48.91 Unspecified atrial fibrillation; F17.210 Nicotine dependence, cigarettes, uncomplicated; Z95.5 Presence of coronary angioplasty implant and graft; Z95.9 Presence of cardiac and vascular implant and graft, unspecified; Z99.81 Dependence on supplemental oxygen; Z20.822 Contact with and (suspected) exposure to COVID-19; Z79.890 Hormone replacement therapy; Z79.82 Long term (current) use of aspirin; Z79.899 Other long term (current) drug therapy
CPT/HCPCS: J2930

== ENCOUNTER 2021-07-07 16:15 | Outpatient (RCR) | payer MEDICARE ==
[~2021-07-07 16:15] MED LIST changes: +DESYREL 100MG100 MG PO; -DESYREL 50MG50 MG PO; +OMNICEF 300MG300 MG PO; +PREDNISONE20 MG PO; +ZITHROMAX Z PA250 MG PO
== END 2021-07-10 | disposition home or self-care (01) ==
LOC: MKS.ESL.PT
DX: M54.50 Low back pain, unspecified (principal)

== ENCOUNTER 2021-07-21 14:45 | Outpatient (RCR) | payer MEDICARE | END 2021-08-10 | LOC: MKS.ESL.PT | DX: M54.50 Low back pain, unspecified (principal); R53.81 Other malaise ==

== ENCOUNTER 2021-09-12 03:22 | Observation (INO) | payer MEDICARE ==
[~2021-09-12] VITALS: Ht 172.7 cm; Wt 89.6 kg
[2021-09-12] VITALS (14 sets, daily range): BP systolic 111–138; BP diastolic 45–75; PULSE 53–87; TEMP 97.5–98.1
[2021-09-12 03:53] LABS: BASO # 0.1 K/mm3 (0.0-0.2); BASO % 0.6 % (0.0-2.0); EOS # 0.3 K/mm3 (0.0-0.7); GRAN # 9.7 K/mm3 (1.4-6.5); GRAN % 70.8 % (42.2-75.2); HEMATOCRIT 46.9 % (37.0-47.0); HEMOGLOBIN 15.7 g/dl (12.5-16.0); LYMPH # 2.6 K/mm3 (1.2-3.4); LYMPH % 19.1 % (20.0-51.0); MEAN CELL VOLUME 85 fl (80.0-100.0); MEAN CORPUSCULAR HEMOGLOBIN 29 pg (27-31); MEAN CORPUSCULAR HGB CONC 34 g/dl (33.0-37.0); MEAN PLATELET VOLUME 9.5 fl (7.4-10.4); MONO % 7.1 % (1.7-9.3); PLATELET COUNT 327 K/mm3 (130-400); RED BLOOD COUNT 5.49 M/mm3 (4.10-5.30); REDCELL DISTRIBUTION WIDTH-CV 13.9 % (11.5-14.5)
[2021-09-12 04:12] LABS: ALBUMIN 4.4 gm/dL (3.4-4.8); BILIRUBIN,TOTAL 0.3 mg/dL (0.2-1.2); CALCIUM 10.2 mg/dL (8.4-10.2); CREATININE, serum 0.98 mg/dL (0.57-1.11); POTASSIUM 4.3 mmol/L (3.5-4.5); TOTAL PROTEIN 7.7 gm/dL (6.2-8.1)
[2021-09-12 04:53] LABS: COLLECTION METHOD CLEAN CATCH
[2021-09-12 05:06] LABS: PH 8 (5-8); URINE APPEARANCE Clear (CLEAR/HAZY); URINE BACTERIA Rare /hpf (NONE SEEN); URINE BILIRUBIN Negative (NEGATIVE); URINE BLOOD Negative (NEGATIVE); URINE COLOR Straw (YELLOW); URINE GLUCOSE 1+ (NEGATIVE); URINE KETONE Negative (NEGATIVE); URINE LEUKOCYTE ESTERASE 1+ (NEGATIVE); URINE NITRATE Negative (NEGATIVE); URINE PROTEIN(semi-quant) Negative (NEGATIVE); URINE UROBILINOGEN Negative (NEGATIVE)
--- NOTE | 2021-09-12 09:32 | NUR ---
PT TAKEN TO SURGERY @ THIS TIME
[2021-09-12] MEDS ORDERED: LAMICTAL 100MG100 MG PO (09:34)
[2021-09-12] MEDS ORDERED: ARICEPT10 MG PO (09:38)
[2021-09-12] MEDS ORDERED: ATIVAN 1MG T1 MG/TAB PO (09:44)
--- NOTE | 2021-09-12 09:49 | NUR ---
MED REC HAS BEEN UPDATED PER LIST PROVIDED BY PT'S PHARMACY. WILL VERIFY MEDICATIONS WITH PT WHEN SHE HAS RETURNED FROM SURGERY.
[2021-09-12] MEDS ORDERED: GLUCOTROL 5M5 MG/TAB PO (11:26)
--- NOTE | 2021-09-12 12:00 | NUR ---
PT HAS ARRIVED BACK TO ROOM FROM PACU. IVF INFUSING, O2 ON @ 2L. PT INTERMITTENTLY COUGHS BUT RESPIRATIONS ARE OTHERWISE UNLABORED @ REST. SCDs APPLIED TO BILATERAL LEGS. PT IS A&O X3, SIPS ICE WATER. RATES ABDOMINAL PAIN 3/10, DENIES NAUSEA.
[2021-09-12] MEDS ORDERED: NEURONTIN300 MG/CAP PO (12:45)
--- NOTE | 2021-09-12 13:53 | NUR ---
MICHAEL and MICHAEL sequeira met with the patient to discuss discharge plan. The patient lives in [place] with her son, Steven Rosario (ph#[phone]). She reports independence with ADLs and has a cane, walker, and home oxygen from [employer]. The patient's PCP is Dr. Branden Stringer and she receives her medications from [facility]. She states that insurance does not cover for one of her medications that is $400. She states that her PCP is sometimes able to provide her with free samples of it. The patient does not have a DPOA-HC, but she states that she is in the process of completing one. She states that she is not and that Steven is her only child. The patient plans on returning home with Steven upon discharge. No additional needs at this time. The patient was downgraded to observation status. MICHAEL and Imelda, steward/stewardess third class, notified the patient. The patient appeared upset and expressed her frustrations. She states that her insurance will most likely not cover for outpatient services and she will have a bill. MICHAEL and Imelda provided support. The patient states that she has already filled out an FAA with financial counseling for an ER visit she had a few months ago. MICHAEL presented and read the Medicare Outpatient Observation Notice to the patient. The patient verbalized understanding and signed the form. MICHAEL sequeira provided her with a copy. *Discharge plan: home with son*
--- NOTE | 2021-09-12 17:30 | NUR ---
PT RESTING IN BED, FAMILY @ BEDSIDE. PT HAS BEEN UP TO BR TO URINATE X2 ET HAS AMBULATED IN HALLS WITH SBA ET CANE FROM HOME. GAIT IS STEADY. PT CONTINUES TO DENY NAUSEA, STATES THAT PAIN IS MILD. IVF INFUSING.
--- NOTE | 2021-09-12 20:10 | NUR ---
Pt. sitting up in bed. Pt. is A&OX3, assessment complete. INT to lt. ac patent, IV fluids infusing per orders. Pt. reports abd. pain at a 4 on pain scale. Gave pain meds per orders. Pt. denies further needs, call light within reach.
[2021-09-13 04:38] VITALS: BP 140/64; PULSE 70; TEMP 97.7
[2021-09-13 06:29] LABS: BASO # 0.1 K/mm3 (0.0-0.2); BASO % 0.3 % (0.0-2.0); GRAN # 14.4 K/mm3 (1.4-6.5); GRAN % 80.9 % (42.2-75.2); HEMATOCRIT 38.3 % (37.0-47.0); LYMPH # 2.3 K/mm3 (1.2-3.4); LYMPH % 12.6 % (20.0-51.0); MEAN CELL VOLUME 89 fl (80.0-100.0); MEAN CORPUSCULAR HEMOGLOBIN 29 pg (27-31); MEAN CORPUSCULAR HGB CONC 33 g/dl (33.0-37.0); MEAN PLATELET VOLUME 9.6 fl (7.4-10.4); MONO % 5.8 % (1.7-9.3); PLATELET COUNT 237 K/mm3 (130-400); RED BLOOD COUNT 4.33 M/mm3 (4.10-5.30); REDCELL DISTRIBUTION WIDTH-CV 14.5 % (11.5-14.5)
[2021-09-13 06:34] LABS: HEMOGLOBIN 12.5 g/dl (12.5-16.0)
[2021-09-13] MEDS ORDERED: NORCO 325 MG-51 TAB PO (06:38)
[2021-09-13 06:57] LABS: CALCIUM 8.9 mg/dL (8.4-10.2); CREATININE, serum 0.77 mg/dL (0.57-1.11); MAGNESIUM 1.8 mg/dL (1.6-2.6); POTASSIUM 4.3 mmol/L (3.5-4.5)
[2021-09-13 07:45] VITALS: BP 106/41; PULSE 50; TEMP 97.7
--- NOTE | 2021-09-13 08:35 | NUR ---
PT RESTING QUIETLY IN BED, RESPIRATIONS UNLABORED, HAS EATEN BREAKFAST. PT DENIES PAIN ET STATES THAT SHE WOULD LIKE TO TAKE A NAP BEFORE SHE DISCHARGES LATER. BANDAIDS TO 3 ABDOMINAL LAP SITES CDI. IV ZOSYN INFUSING INTO PERIPHERAL IV. CALL LIGHT WITHIN REACH.
[2021-09-13 09:40] VITALS: BP 126/52; PULSE 77
--- NOTE | 2021-09-13 09:58 | NUR ---
PT GIVEN DISCHARGE EDUCATION ET INSTRUCTIONS, DENIES QUESTIONS. IV IN LEFT AC DCED. PT STATES THAT SHE IS VERY READY TO GO HOME, HAS A ZOOM MEETING @ 11. PT HAS CALLED HER FAMILY, WHO SHE LIVES WITH, TO TAKE HER HOME. PT DRESSES SELF, DENIES NEEDS.
--- NOTE | 2021-09-13 10:12 | NUR ---
PT DISCHARGED TO HOME WITH FAMILY. PT TRANSPORTED TO FAMILY'S CAR VIA WC PUSHED BY ELBA MUNOZ.
== END 2021-09-13 10:05 | disposition home or self-care (01) ==
LOC: COL.ER 03:22 → SURG 05:42
PROVIDERS: Emergency Medicine; ADMIT Internal Medicine
DX: K80.10 Calculus of gallbladder with chronic cholecystitis without obstruction (principal); J44.9 Chronic obstructive pulmonary disease, unspecified; D72.829 Elevated white blood cell count, unspecified; R74.02 Elevation of levels of lactic acid dehydrogenase [LDH]; I10 Essential (primary) hypertension; I48.91 Unspecified atrial fibrillation; I25.10 Atherosclerotic heart disease of native coronary artery without angina pectoris; E03.9 Hypothyroidism, unspecified; E11.42 Type 2 diabetes mellitus with diabetic polyneuropathy; E27.9 Disorder of adrenal gland, unspecified; R25.1 Tremor, unspecified; G47.00 Insomnia, unspecified; K21.9 Gastro-esophageal reflux disease without esophagitis; J96.10 Chronic respiratory failure, unspecified whether with hypoxia or hypercapnia; F32.A Depression, unspecified; F17.210 Nicotine dependence, cigarettes, uncomplicated; Z99.89 Dependence on other enabling machines and devices; Z79.899 Other long term (current) drug therapy; Z79.82 Long term (current) use of aspirin; Z79.890 Hormone replacement therapy; Z79.84 Long term (current) use of oral hypoglycemic drugs
CPT/HCPCS: 99239; G0378; J1100; J1170; J1720; J1790; J1815; J1885; J2370; J2405; J2543; J2704; J2765; J3010; J7030; J7120; J7512; Q9967

== ENCOUNTER 2021-11-24 06:23 | Day surgery (SDC) | payer MEDICARE ==
[~2021-11-24] VITALS: Ht 172.7 cm; Wt 94.4 kg
[~2021-11-24 06:23] MED LIST changes: +ARICEPT10 MG PO; +GLUCOTROL 5M5 MG/TAB PO; +LAMICTAL 100MG100 MG PO; +NORCO 325 MG-51 TAB PO
[2021-11-24] MEDS ORDERED: CARAFATE 1GM1 G PO (07:12)
[2021-11-24] MEDS ORDERED: ULTRAM 50MG TAB50 MG PO (07:13)
[2021-11-24 07:27] VITALS: BP 134/69; PULSE 62; TEMP 97.9
[2021-11-24 08:05] VITALS: BP 126/78; PULSE 70; TEMP 97.6
--- NOTE | 2021-11-24 08:05 | NUR ---
The patient arrived back to [facility] from the endoscopy suite at this time. The patient appears alert and oriented and ambulated from the cart to the recliner in her room with the assistance of one nurse and appeared to tolerate the activity well. Post procedure vital signs were started at this time. The patient agrees to try a muffin and grape juice. Call light is within reach. Fresh warm blanket provided. Denies any further needs.
[2021-11-24 08:20] VITALS: BP 134/73; PULSE 60
--- NOTE | 2021-11-24 08:20 | NUR ---
The patient appeared to tolerate the juice and muffin well and requests more of each. Vital signs appear stable. Call light remains within reach. The patient is waiting to speak with Dr. Will prior to discharge.
[2021-11-24 08:35] VITALS: BP 130/77; PULSE 59
--- NOTE | 2021-11-24 08:40 | NUR ---
The patient is sitting up in the recliner and appears to be resting comfortably at this time. The patient finished her second muffin and juice and tolerated both well. The patient is just waiting to speak to the doctor for discharge.
[2021-11-24 08:50] VITALS: BP 135/69; PULSE 62
--- NOTE | 2021-11-24 08:50 | NUR ---
Dr. Will is at the patient's bedside discussing the findings of the procedure.
--- NOTE | 2021-11-24 09:00 | NUR ---
Discharge instructions were reviewed with the patient at this time. She verbalized understanding and has no questions for the nurse at this time. The patient's IV to her right hand was removed and a pressure dressing was applied to the site. The patient is going to get dressed and call her son to pick her up.
--- NOTE | 2021-11-24 09:10 | NUR ---
The patient was escorted out via wheelchair to [facility] by MARY Muñoz. The patient's belongings and discharge paperwork were sent with her. The patient's son is present to drive her home.
== END 2021-11-24 09:10 | disposition home or self-care (01) ==
LOC: SDCO 06:23
DX: K29.70 Gastritis, unspecified, without bleeding (principal); K31.84 Gastroparesis
CPT/HCPCS: J2704; J3010; J7030

== ENCOUNTER 2021-12-21 08:15 | Emergency (ER) | payer MEDICARE, OTHER ==
[~2021-12-21] VITALS: Ht 172.7 cm; Wt 93.2 kg
[~2021-12-21 08:15] MED LIST changes: +CARAFATE 1GM1 G PO
[2021-12-21 08:16] VITALS: TEMP 99
[2021-12-21 09:23] LABS: BASO # 0.1 K/mm3 (0.0-0.2); BASO % 0.7 % (0.0-2.0); EOS # 0.2 K/mm3 (0.0-0.7); GRAN # 7.1 K/mm3 (1.4-6.5); GRAN % 62.9 % (42.2-75.2); HEMATOCRIT 40.8 % (37.0-47.0); HEMOGLOBIN 12.8 g/dl (12.5-16.0); LYMPH % 27.2 % (20.0-51.0); MEAN CELL VOLUME 92 fl (80.0-100.0); MEAN CORPUSCULAR HEMOGLOBIN 29 pg (27-31); MEAN CORPUSCULAR HGB CONC 31 g/dl (33.0-37.0); MEAN PLATELET VOLUME 9.9 fl (7.4-10.4); MONO # 0.8 K/mm3 (0.1-0.6); MONO % 6.9 % (1.7-9.3); PLATELET COUNT 274 K/mm3 (130-400); RED BLOOD COUNT 4.42 M/mm3 (4.10-5.30); REDCELL DISTRIBUTION WIDTH-CV 14.5 % (11.5-14.5)
[2021-12-21 09:29] LABS: COLLECTION METHOD CLEAN CATCH
[2021-12-21 09:34] LABS: URINE APPEARANCE Clear (CLEAR/HAZY); URINE BLOOD Negative (NEGATIVE); URINE COLOR Yellow (YELLOW); URINE GLUCOSE Negative (NEGATIVE); URINE KETONE Negative (NEGATIVE); URINE NITRATE Negative (NEGATIVE); URINE PROTEIN(semi-quant) Negative (NEGATIVE); URINE UROBILINOGEN 0.2 E.U/dL (0.2-1.0)
[2021-12-21 09:39] LABS: SQUAMOUS EPITHELIAL 0-2 /hpf (0-10); URINE BACTERIA Rare /hpf (NONE SEEN); URINE RBC 0-2 /hpf (0-2)
[2021-12-21 09:50] LABS: ALBUMIN 3.7 gm/dL (3.4-4.8); BILIRUBIN,TOTAL 0.4 mg/dL (0.2-1.2); C-REACTIVE PROTEIN 0.49 mg/dL (0.00-0.50); CALCIUM 9.2 mg/dL (8.4-10.2); CREATININE, serum 0.84 mg/dL (0.57-1.11); POTASSIUM 4.4 mmol/L (3.5-4.5); TOTAL PROTEIN 6.9 gm/dL (6.2-8.1)
[2021-12-21 10:11] LABS: TROPONIN-I 0.044 ng/mL (0.00-0.033)
[2021-12-21] MEDS ORDERED: PREDNISONE20 MG PO (13:20)
[2021-12-21] MEDS ORDERED: ZITHROMAX Z PA250 MG PO (13:20)
[2021-12-21 13:50] VITALS: BP 143/73; PULSE 58
== END 2021-12-21 13:51 | disposition home or self-care (01) ==
LOC: COL.ER 08:15
PROVIDERS: Family Medicine
DX: J44.1 Chronic obstructive pulmonary disease with (acute) exacerbation (principal); R10.13 Epigastric pain; F17.210 Nicotine dependence, cigarettes, uncomplicated; Z20.822 Contact with and (suspected) exposure to COVID-19
CPT/HCPCS: J7120

== ENCOUNTER 2023-02-08 09:00 | Outpatient (RCR) | payer MEDICARE ==
[~2023-02-08 09:00] MED LIST changes: +ATARAX50 MG PO; +GLUCOPHAGE500 MG/TAB PO; +MOBIC 7.5MG7.5 MG PO
== END 2023-02-09 | disposition home or self-care (01) ==
LOC: WSPT
DX: M54.2 Cervicalgia (principal); M54.50 Low back pain, unspecified

== ENCOUNTER 2023-02-22 09:42 | Emergency (ER) | payer MEDICARE ==
[~2023-02-22] VITALS: Ht 170.2 cm; Wt 100.0 kg
[2023-02-22 10:05] LABS: BASO # 0.1 K/mm3 (0.0-0.2); BASO % 0.8 % (0.0-2.0); EOS # 0.2 K/mm3 (0.0-0.7); EOS % 2.2 % (0.0-4.0); GRAN # 6.7 K/mm3 (1.4-6.5); GRAN % 63.4 % (42.2-75.2); HEMATOCRIT 40.7 % (37.0-47.0); HEMOGLOBIN 12.8 g/dl (12.5-16.0); LYMPH # 2.8 K/mm3 (1.2-3.4); LYMPH % 26.3 % (20.0-51.0); MEAN CELL VOLUME 90 fl (80.0-100.0); MEAN CORPUSCULAR HEMOGLOBIN 28 pg (27-31); MEAN CORPUSCULAR HGB CONC 31 g/dl (33.0-37.0); MEAN PLATELET VOLUME 10.1 fl (7.4-10.4); MONO # 0.7 K/mm3 (0.1-0.6); MONO % 6.9 % (1.7-9.3); PLATELET COUNT 261 K/mm3 (130-400); RED BLOOD COUNT 4.55 M/mm3 (4.10-5.30); REDCELL DISTRIBUTION WIDTH-CV 13.2 % (11.5-14.5)
[2023-02-22 10:11] LABS: INR 0.9 (0.8-3.0); PROTHROMBIN TIME 9.8 SECONDS (9.7-12.8)
[2023-02-22 10:18] LABS: ALANINE AMINOTRANSFERASE 28 U/L (0-55); ALBUMIN 3.7 gm/dL (3.4-4.8); ALKALINE PHOSPHATASE 124 U/L (40-150); ANION GAP 13 mmol/L (7-16); AST,SGOT 19 U/L (5-34); BILIRUBIN,TOTAL 0.2 mg/dL (0.2-1.2); BLOOD UREA NITROGEN 15 mg/dL (10-20); CALCIUM 9.6 mg/dL (8.4-10.2); CARBON DIOXIDE 21 mmol/L (23-31); CHLORIDE 103 mmol/L (98-107); CREATININE, serum 0.93 mg/dL (0.57-1.11); GLUCOSE 321 mg/dL (70-99); POTASSIUM 4.7 mmol/L (3.5-4.5); SODIUM 137 mmol/L (136-145); TOTAL PROTEIN 7.1 gm/dL (6.2-8.1)
[2023-02-22 10:19] LABS: ALCOHOL(ethanol),MEDICAL < 10 mg/dL (0-10)
[2023-02-22 10:25] LABS: TROPONIN-I 0.013 ng/mL (0.00-0.033)
[2023-02-22 11:53] LABS: COLLECTION METHOD CLEAN CATCH
[2023-02-22 12:31] LABS: URINE APPEARANCE Clear (CLEAR/HAZY); URINE BLOOD Negative (NEGATIVE); URINE COLOR Yellow (YELLOW); URINE GLUCOSE 1+ (NEGATIVE); URINE KETONE TRACE (NEGATIVE); URINE NITRATE Negative (NEGATIVE); URINE PROTEIN(semi-quant) Negative (NEGATIVE); URINE UROBILINOGEN 0.2 E.U/dL (0.2-1.0)
[2023-02-22 12:32] LABS: SQUAMOUS EPITHELIAL 0-2 /hpf (0-10); URINE BACTERIA None Seen /hpf (NONE SEEN); URINE RBC 0-2 /hpf (0-2)
[2023-02-22 13:10] VITALS: BP 143/78; PULSE 63; TEMP 97.2
== END 2023-02-22 13:15 | disposition home or self-care (01) ==
LOC: COL.ER 09:42
PROVIDERS: Emergency Medicine
DX: F03.90 Unspecified dementia, unspecified severity, without behavioral disturbance, psychotic disturbance, mood disturbance, and anxiety (principal); R41.0 Disorientation, unspecified
CPT/HCPCS: J7030

== ENCOUNTER 2023-05-03 09:56 | Outpatient (RCR) | payer MEDICARE | END 2023-05-12 | disposition home or self-care (01) | LOC: WSPT | DX: M54.2 Cervicalgia (principal); M54.9 Dorsalgia, unspecified; R26.89 Other abnormalities of gait and mobility; Z91.81 History of falling ==

== ENCOUNTER 2023-05-15 09:00 | Outpatient (RCR) | payer MEDICARE | END 2023-05-15 12:00 | disposition home or self-care (01) | LOC: WSPT 09:00 | DX: M54.2 Cervicalgia (principal); M54.50 Low back pain, unspecified; R26.89 Other abnormalities of gait and mobility; Z91.81 History of falling ==

== ENCOUNTER 2023-07-02 08:53 | Emergency (ER) | payer MEDICARE ==
[~2023-07-02] VITALS: Ht 172.7 cm; Wt 95.9 kg
[2023-07-02 09:00] VITALS: TEMP 98.3
[2023-07-02] MEDS ORDERED: NS 1,000 ML IV ONE (09:15)
[2023-07-02 09:22] LABS: BASO % 0.4 % (0.0-2.0); EOS % 0.1 % (0.0-4.0); GRAN # 6.4 K/mm3 (1.4-6.5); GRAN % 75.6 % (42.2-75.2); HEMATOCRIT 48.6 % (37.0-47.0); HEMOGLOBIN 15.8 g/dl (12.5-16.0); LYMPH # 1.1 K/mm3 (1.2-3.4); LYMPH % 12.8 % (20.0-51.0); MEAN CELL VOLUME 86 fl (80.0-100.0); MEAN CORPUSCULAR HEMOGLOBIN 28 pg (27-31); MEAN CORPUSCULAR HGB CONC 33 g/dl (33.0-37.0); MEAN PLATELET VOLUME 10.2 fl (7.4-10.4); MONO # 0.9 K/mm3 (0.1-0.6); MONO % 10.7 % (1.7-9.3); PLATELET COUNT 260 K/mm3 (130-400); RED BLOOD COUNT 5.63 M/mm3 (4.10-5.30); REDCELL DISTRIBUTION WIDTH-CV 13.9 % (11.5-14.5)
[2023-07-02] MEDS ORDERED: Albuterol/Ipratropium 3 MG-0.5 MG/3 ML Neb Soln IH ONE (09:30)
[2023-07-02 09:36] LABS: ALBUMIN 4.3 gm/dL (3.4-4.8); BILIRUBIN,TOTAL 0.3 mg/dL (0.2-1.2); CALCIUM 10.6 mg/dL (8.4-10.2); CREATININE, serum 1.07 mg/dL (0.57-1.11); POTASSIUM 4.1 mmol/L (3.5-4.5); TOTAL PROTEIN 8.8 gm/dL (6.2-8.1)
[2023-07-02 10:24] LABS: COLLECTION METHOD CLEAN CATCH
[2023-07-02 10:36] LABS: PH 5.5 (5.0-8.5); URINE APPEARANCE CLOUDY (CLEAR/HAZY); URINE BLOOD NEGATIVE (NEGATIVE); URINE COLOR Dark Yellow (YELLOW); URINE GLUCOSE NEGATIVE (NEGATIVE); URINE KETONE 1+ (NEGATIVE); URINE NITRATE NEGATIVE (NEGATIVE); URINE PROTEIN(semi-quant) 3+ (NEGATIVE)
[2023-07-02] MEDS ORDERED: LR 1,000 ML IV ONE (10:45)
[2023-07-02] MEDS ORDERED: Oseltamivir 75 MG CAP PO ONE (10:45)
[2023-07-02] MEDS ORDERED: methylPREDNISolone Sod Succ 125 MG/2 ML VIAL IV ONE (10:45)
[2023-07-02 10:48] LABS: MUCOUS PRESENT (NOT PRESENT); URINE BACTERIA MODERATE /hpf (NONE SEEN); URINE RBC 0-2 /hpf (0-2)
[2023-07-02] MEDS ORDERED: PREDNISONE10 MG PO (10:57)
[2023-07-02] MEDS ORDERED: TAMIFLU 75MG75 MG PO (10:57)
[2023-07-02] MEDS ORDERED: ZOFRAN ODT4 MG PO (10:57)
[2023-07-02 11:25] VITALS: BP 137/82; PULSE 83
== END 2023-07-02 11:25 | disposition home or self-care (01) ==
LOC: COL.ER 08:53
PROVIDERS: Family Medicine
DX: J10.1 Influenza due to other identified influenza virus with other respiratory manifestations (principal); E86.0 Dehydration; F17.200 Nicotine dependence, unspecified, uncomplicated
CPT/HCPCS: J2930; J7030

== ENCOUNTER 2023-08-07 12:11 | Emergency (ER) | payer MEDICARE ==
[~2023-08-07] VITALS: Ht 172.7 cm; Wt 100.0 kg
[~2023-08-07 12:11] MED LIST changes: +PREDNISONE10 MG PO; +TAMIFLU 75MG75 MG PO; +ZOFRAN ODT4 MG PO
[2023-08-07 12:16] VITALS: TEMP 96.4
[2023-08-07 13:03] LABS: BASO # 0.1 K/mm3 (0.0-0.2); BASO % 0.5 % (0.0-2.0); EOS # 0.1 K/mm3 (0.0-0.7); EOS % 1.1 % (0.0-4.0); GRAN # 7.4 K/mm3 (1.4-6.5); GRAN % 63.4 % (42.2-75.2); HEMATOCRIT 42.1 % (37.0-47.0); HEMOGLOBIN 13.4 g/dl (12.5-16.0); LYMPH # 3.3 K/mm3 (1.2-3.4); LYMPH % 28.5 % (20.0-51.0); MEAN CELL VOLUME 90 fl (80.0-100.0); MEAN CORPUSCULAR HEMOGLOBIN 29 pg (27-31); MEAN CORPUSCULAR HGB CONC 32 g/dl (33.0-37.0); MEAN PLATELET VOLUME 10.3 fl (7.4-10.4); MONO # 0.7 K/mm3 (0.1-0.6); MONO % 6.2 % (1.7-9.3); PLATELET COUNT 294 K/mm3 (130-400); RED BLOOD COUNT 4.69 M/mm3 (4.10-5.30); REDCELL DISTRIBUTION WIDTH-CV 14.7 % (11.5-14.5)
[2023-08-07 13:11] LABS: ALBUMIN 3.6 g/dL (3.4-4.8); BILIRUBIN,TOTAL 0.3 mg/dL (0.2-1.2); CALCIUM 9.6 mg/dL (8.4-10.2); CREATININE, serum 1.06 mg/dL (0.57-1.11); POTASSIUM 3.7 mEq/L (3.5-4.5); TOTAL PROTEIN 6.9 g/dl (6.2-8.1)
[2023-08-07 13:12] LABS: COLLECTION METHOD CLEAN CATCH
[2023-08-07 13:18] LABS: TROPONIN-I 0.017 ng/mL (0.00-0.033)
[2023-08-07 13:28] LABS: URINE APPEARANCE CLOUDY (CLEAR/HAZY); URINE BLOOD NEGATIVE (NEGATIVE); URINE COLOR Dark Yellow (YELLOW); URINE GLUCOSE NEGATIVE (NEGATIVE); URINE KETONE TRACE (NEGATIVE); URINE NITRATE NEGATIVE (NEGATIVE); URINE PROTEIN(semi-quant) 1+ (NEGATIVE)
[2023-08-07 13:59] LABS: TRICYCLIC ANTIDEPRESS URINE NEGATIVE (NEGATIVE)
[2023-08-07 14:08] LABS: AMORPHOUS CRYSTAL PRESENT (NOT PRESENT); SQUAMOUS EPITHELIAL 0-2 /hpf (0-10); URINE RBC NONE SEEN /hpf (0-2); URINE WBC 0-2 /hpf (0-2)
[2023-08-07 14:09] LABS: MUCOUS PRESENT (NOT PRESENT); URINE BACTERIA MODERATE /hpf (NONE SEEN); URINE CALCIUM OXALATE CRYSTAL PRESENT (NOT PRESENT)
[2023-08-07] MEDS ORDERED: CEPHALEXIN500 M1 PO (14:36)
[2023-08-07] MEDS ORDERED: Cephalexin 500 MG CAP PO ONE (14:45)
[2023-08-07 15:06] VITALS: BP 117/75; PULSE 64
== END 2023-08-07 15:06 | disposition home or self-care (01) ==
LOC: COL.ER 12:11
PROVIDERS: Emergency Medicine
DX: R41.82 Altered mental status, unspecified (principal); N39.0 Urinary tract infection, site not specified; R55 Syncope and collapse

== ENCOUNTER → 2023-12-19 | Outpatient (CLI) | payer MEDICARE ==
[~2023-12-19] MED LIST changes: +Iohexol 300 - 10 ML VIAL ONE; +Lidocaine PF 2% (20 MG/ML) 2 ML VIAL ONE
== END ==
LOC: MHCPAIN 12:47
DX: M54.12 Radiculopathy, cervical region (principal)
CPT/HCPCS: J1100; Q9967

== ENCOUNTER → 2023-12-30 | Outpatient (CLI) | payer MEDICARE, OTHER ==
[~2023-12-30] VITALS: Ht 172.7 cm; Wt 89.3 kg
[~2023-12-30] MED LIST changes: +ARICEPT ODT10 MG PO; +ASPIRIN 81M81 MG/TA2 PO; +B-121000 MCG PO; +CARDIZEM CD 18180 MG PO; +CERTAVITE SENI1 EACH PO; +DEPAKOTE ER 50500 MG PO; +FLEXERIL5 MG PO; +Glycopyrrolate 0.2 MG/ML 1 ML VIAL ONE; -Iohexol 300 - 10 ML VIAL ONE; +LR 1,000 ML IV SCH; -Lidocaine PF 2% (20 MG/ML) 2 ML VIAL ONE; +RISPERDAL 1M1 MG/TAB PO; +SYNTHROID0.1 MG/TAB PO; +VITAMIN D362.5 MC1 PO
[2023-12-30 12:05] VITALS: BP 156/78; PULSE 65; TEMP 98.2
[2023-12-30 13:30] VITALS: BP 116/73; PULSE 65
[2023-12-30 13:45] VITALS: BP 130/80; PULSE 61
[2023-12-30 14:00] VITALS: BP 124/75; PULSE 62
--- NOTE | 2023-12-30 14:23 | NUR ---
1410: PATIENT IS AWAKE AND ALERT. ALL NEEDS MET. IV REMOVED WITHOUT ANY ISSUES. DECLINED D/C PAPERWORK AND SAYS SHE HAS HAD MULTIPLE MRI SEDATIONS BEFORE AND DOESN'T NEED THE PAPERWORK. HER RIDE IS HERE FOR HER. PATIENT ESCORTED DOWN TO HER RIDE VIA WHEELCHAIR WITH ALL OF HER PERSONAL ITEMS. PATIENT ABLE TO GET INTO THE FRONT PASSENGER SEAT OF HER RIDE WITHOUT ANY ISSUES OR ASSISTANCE.
== END ==
LOC: COL.RAD 10:56
DX: M48.07 Spinal stenosis, lumbosacral region (principal)
CPT/HCPCS: J2704; J7120

== ENCOUNTER → 2024-01-21 | Outpatient (CLI) | payer MEDICARE ==
[~2024-01-21] MED LIST changes: -Glycopyrrolate 0.2 MG/ML 1 ML VIAL ONE; -LR 1,000 ML IV SCH
== END ==
LOC: MHCPAIN 13:31
DX: M43.12 Spondylolisthesis, cervical region (principal); M48.02 Spinal stenosis, cervical region; M51.24 Other intervertebral disc displacement, thoracic region; I25.10 Atherosclerotic heart disease of native coronary artery without angina pectoris; Z79.01 Long term (current) use of anticoagulants; F17.210 Nicotine dependence, cigarettes, uncomplicated; Z79.84 Long term (current) use of oral hypoglycemic drugs; E11.9 Type 2 diabetes mellitus without complications
CPT/HCPCS: G0463

== ENCOUNTER 2024-03-09 22:35 | Emergency (ER) | payer MEDICARE ==
[~2024-03-09] VITALS: Ht 172.7 cm; Wt 84.1 kg
[2024-03-09 22:39] VITALS: TEMP 97.3
[2024-03-09] MEDS ORDERED: Ondansetron 4 MG/2 ML VIAL IV ONE (22:45)
[2024-03-09] MEDS ORDERED: NS 1,000 ML IV ONE (22:45)
[2024-03-09 23:18] LABS: BASO % 0.4 % (0.0-2.0); EOS # 0.2 K/mm3 (0.0-0.7); EOS % 1.7 % (0.0-4.0); GRAN # 4.4 K/mm3 (1.4-6.5); HEMATOCRIT 40.1 % (37.0-47.0); HEMOGLOBIN 13.8 g/dl (12.5-16.0); LYMPH # 3.7 K/mm3 (1.2-3.4); LYMPH % 40.6 % (20.0-51.0); MEAN CELL VOLUME 84 fl (80.0-100.0); MEAN CORPUSCULAR HEMOGLOBIN 29 pg (27-31); MEAN CORPUSCULAR HGB CONC 34 g/dl (33.0-37.0); MEAN PLATELET VOLUME 10.1 fl (7.4-10.4); MONO # 0.7 K/mm3 (0.1-0.6); PLATELET COUNT 204 K/mm3 (130-400); REDCELL DISTRIBUTION WIDTH-CV 15.5 % (11.5-14.5)
[2024-03-09 23:56] LABS: COLLECTION METHOD CATHETER
[2024-03-10] LABS: URINE APPEARANCE CLEAR (CLEAR/HAZY); URINE BLOOD NEGATIVE (NEGATIVE); URINE COLOR YELLOW (YELLOW); URINE GLUCOSE NEGATIVE (NEGATIVE); URINE KETONE TRACE (NEGATIVE); URINE NITRATE NEGATIVE (NEGATIVE); URINE PROTEIN(semi-quant) NEGATIVE (NEGATIVE); URINE UROBILINOGEN 0.2 E.U/dL (0.2-1.0)
[2024-03-10 00:15] LABS: ALBUMIN 3.5 g/dL (3.4-4.8); BILIRUBIN,TOTAL 0.4 mg/dL (0.2-1.2); CALCIUM 9.3 mg/dL (8.4-10.2); CREATININE, serum 0.86 mg/dL (0.57-1.11); POTASSIUM 3.1 mEq/L (3.5-4.5); TOTAL PROTEIN 6.3 g/dl (6.2-8.1); TROPONIN-I 0.025 ng/mL (0.00-0.033)
[2024-03-10 00:16] LABS: TRICYCLIC ANTIDEPRESS URINE POSITIVE (NEGATIVE)
[2024-03-10] MEDS ORDERED: Iohexol 350 - 100 ML VIAL IV ONE (00:41)
[2024-03-10] MEDS ORDERED: NS 100 ML IV ONE (00:42)
[2024-03-10] MEDS ORDERED: LR 1,000 ML IV ONE (01:00)
[2024-03-10 02:03] VITALS: BP 113/68; PULSE 60
== END 2024-03-10 02:47 | disposition home or self-care (01) ==
LOC: COL.ER 22:35
PROVIDERS: Emergency Medicine
DX: R55 Syncope and collapse (principal); E27.9 Disorder of adrenal gland, unspecified; K52.9 Noninfective gastroenteritis and colitis, unspecified; R91.1 Solitary pulmonary nodule; F17.200 Nicotine dependence, unspecified, uncomplicated; Z20.822 Contact with and (suspected) exposure to COVID-19
CPT/HCPCS: J7030; J7120; Q9967